=== PATIENT | female | born 1985 | race Caucasian/White ===

== ENCOUNTER 2016-07-06 17:31 | Emergency (ER) | payer OTHER ==
[~2016-07-06] VITALS: Ht 157.5 cm; Wt 127.0 kg
[2016-07-06] MEDS ORDERED: fentaNYL PF VIAL 100 MCG/2 ML VIAL IV ONE (18:15)
[2016-07-06] MEDS ORDERED: KETOROLAC TROMETHAMINE 30 MG/ML INJ. IV ONE (18:15)
[2016-07-06] MEDS ORDERED: MORPHINE SULFATE 4 MG/ML DISP.SYRIN. IV ONE (19:00)
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
[2016-07-06 20:33] VITALS: BP 132/68
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
== END 2016-07-06 22:06 | disposition home or self-care (01) ==
LOC: ER 17:31
DX: S80.01XA Contusion of right knee, initial encounter (principal); R07.89 Other chest pain; M79.601 Pain in right arm; I10 Essential (primary) hypertension; Z88.0 Allergy status to penicillin; Z88.5 Allergy status to narcotic agent; V98.8XXA Other specified transport accidents, initial encounter; Y93.89 Activity, other specified; Y92.89 Other specified places as the place of occurrence of the external cause; Y99.8 Other external cause status
CPT/HCPCS: 71010; 73030; 73060; 73080; 73090; 96374; 96375; 99285; J1885; J2270; J3010